=== PATIENT | female | born 1950 | race Hispanic/Latino ===

== ENCOUNTER 2017-05-06 07:31 | Day surgery (SDC) | payer MEDICARE ==
[~2017-05-06 07:31] MED LIST: ANCEF/STERILE WATER 2 GM/20 ML 2 GM/20 ML SYRINGE IV NR; NACL 0.9% 1000 ML 1,000 ML IV SCH
[2017-05-06] MEDS ORDERED: HEPARIN 10,000 UNITS/10 ML ONE ×2 (07:44→15:20)
[2017-05-06] MEDS ORDERED: MARCAINE 0.5% 30 ML INFILTRATI ONE ×2 (07:44→11:19)
[2017-05-06] MEDS ORDERED: NACL 0.9% 500 ML 500 ML ONE (07:45)
[2017-05-06] MEDS ORDERED: PAPAVERINE ONE (07:45)
[2017-05-06] MEDS ORDERED: PROTAMINE SULFATE ONE (07:45)
[2017-05-06] MEDS ORDERED: XYLOCAINE 1%/ EPI 1:100,000 INFILTRATI ONE ×4 (07:45→12:21)
[2017-05-06] MEDS ORDERED: SODIUM BICARBONATE ONE (07:46)
--- NOTE | 2017-05-06 09:05 | Anesthesia Consultation ---
Anesthesia Consult and Med Hx Date of service: 05/06/17 - Airway Anesthetic Teeth Evaluation: Edentulous (upper and lower) ROM Head & Neck: Adequate Mental/Hyoid Distance: Adequate Mallampati Class: Class II Intubation Access Assessment: Probably Good - Pulmonary Exam CTA: Yes - Cardiac Exam Cardiac Exam: RRR - Pre-Operative Health Status ASA Pre-Surgery Classification: ASA3 Proposed Anesthetic Plan: General - Pulmonary Hx Smoking: Yes (STOPPED 2011) Hx Asthma: No COPD: No Hx Sleep Apnea: No - Cardiovascular System Hx Hypertension: Yes Hx Heart Attack/AMI: No Hx Pacemaker: No Hx Internal Defibrillator: No Hx Heart Murmur: No Hx Peripheral Vascular Disease: No - Central Nervous System 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
--- NOTE | 2017-05-06 09:05 | Anesthesia Day of Surgery ---
Anesthesia Day of Surgery - Day of Surgery Patient Examined: Yes Patient H&P Reviewed: Yes Patient is NPO: Yes
[2017-05-06] MEDS ORDERED: DIPRIVAN 10 MG/ML IV ONE (09:25)
[2017-05-06] MEDS ORDERED: DILAUDID ONE (09:26)
[2017-05-06 09:34] LABS: Basophils % (Auto) 1.4 % (0.0-1.8); Eosinophils % (Auto) 3.6 % (0.0-4.3); Hematocrit 39.6 % (30.3-42.9); Hemoglobin 13.5 gm/dl (10.1-14.3); Mean Corpuscular HGB Conc 34 % (30-34); Mean Corpuscular Hemoglobin 33 pg (28-32); Mean Corpuscular Volume 96 fl (79-97); Platelet Count 325 K/mm3 (140-440); Red Blood Count 4.13 M/mm3 (3.65-5.03); Red Cell Distribution Width 15.6 % (13.2-15.2); White Blood Count 7.2 K/mm3 (4.5-11.0)
[2017-05-06 09:39] LABS: BUN/Creatinine Ratio 8.85; Chloride 92.7 mmol/L (98-107); Potassium 4.3 mmol/L (3.6-5.0)
[2017-05-06] MEDS ORDERED: PEPCID PO NR (10:00)
[2017-05-06] MEDS ORDERED: VERSED IV NR (10:00)
[2017-05-06] MEDS ORDERED: DILAUDID IV PRN (10:56)
[2017-05-06] MEDS ORDERED: THROMBIN (BOVINE) TP ONE (11:20)
[2017-05-06] MEDS ORDERED: GELFOAM TP ONE ×2 (11:20→12:22)
[2017-05-06] MEDS ORDERED: NACL 0.9% IR ONE (12:21)
[2017-05-06] MEDS ORDERED: MARCAINE 0.5% INFILTRATI ONE ×2 (12:22)
[2017-05-06] MEDS ORDERED: THROMBIN SPRAYKIT (BOVINE) TP ONE (12:22)
[2017-05-06] MEDS ORDERED: HEPARIN 10,000 UNITS/10 ML 2,000 UNIT in NACL 0.9% 500 ML 500 ML IR ONE (12:24)
[2017-05-06] MEDS ORDERED: RIFADIN ONE (12:30)
[2017-05-06] MEDS ORDERED: NEO SYNEPHRINE ONE (15:19)
[2017-05-06] MEDS ORDERED: XYLOCAINE MPF 2% ONE (15:20)
[2017-05-06] MEDS ORDERED: NACL 0.9% 100 ML ONE (15:20)
--- NOTE | 2017-05-06 15:47 | Short Stay Summary ---
Short Stay Documentation Date of service: 05/06/17 - History H&P: obtained from office - Allergies and Medications Current Medications: Allergies atorvastatin calcium [From Lipitor] Adverse Reaction (Verified 05/01/17 12:41) LETHARGY Home Medications Medication Instructions Recorded Confirmed Last Taken Type Calcitriol [Rocaltrol] 5 mcg PO DAILY 05/06/17 05/06/17 05/05/17 History Cinacalcet HCl [Sensipar] 90 mg PO DAILY 05/06/17 05/06/17 05/05/17 History Humalog Kwikpen 200 UNITS/ML 100 unit PRN 05/06/17 05/06/17 Unknown History Hydralazine HCl [Apresoline TAB] 50 mg PO BID 05/06/17 05/06/17 05/05/17 History Pravastatin Sodium [Pravastatin] 10 mg PO QDAY 05/06/17 05/06/17 05/05/17 History Sevelamer Carbonate [Renvela] 800 mg PO TID 05/06/17 05/06/17 05/05/17 History amLODIPine [Norvasc] 5 mg PO DAILY 05/06/17 05/06/17 05/05/17 History cloNIDine [Catapres] 0.2 tab PO DAILY 05/06/17 05/06/17 05/05/17 History Active Medications Hydromorphone HCl (Dilaudid) 0.25 mg IV Q10MIN PRN PRN Reason: Pain, Moderate (4-6) Stop: 05/06/17 23:59 Cefazolin Sodium (Ancef/Sterile Water 2 Gm/20 Ml) 2 gm in 20 mls @ 80 mls/hr IV PREOP NR PRN Reason: Protocol Stop: 05/06/17 23:59 Sodium Chloride (Nacl 0.9% 1000 Ml) 1,000 mls @ 42 mls/hr IV DIRECT DEAN Last Admin: 05/06/17 09:30 Dose: 42 mls/hr Midazolam HCl (Versed) 2 mg IV PREOP NR Stop: 05/06/17 23:59 Last Admin: 05/06/17 10:00 Dose: 2 mg - Brief post op/procedure progress note Date of procedure: 05/06/17 Pre-op diagnosis: ESRD, need for permanent dialysis access, poorly maturing left AV fistula Post-op diagnosis: same Procedure: 1. Left UE AV fistula revision- fistula elevation Anesthesia: GETA Surgeon: NATHANAEL BAL Estimated blood loss: 50-100ml Pathology: none Condition: stable - Disposition Condition at discharge: Good Disposition: DC-01 TO HOME OR SELFCARE Short Stay Discharge Plan Wound: open to air, keep clean and dry Additional Instructions: 1. Keep arm elevated on pillows 2. Use sponge ball to maintain range of motion 3. Call for problems Follow up with: PRIMARY CAREMD [Primary Care Provider] - 7 Days NATHANAEL BAL MD [Staff Physician] - 14 Days
[2017-05-06 16:47] VITALS: BP 157/64
--- NOTE | 2017-05-06 17:01 | Post Anesthesia Evaluation ---
- Post Anesthesia Evaluation Patient Participated: Yes Airway Patent: Yes Stable Respiratory Function: Yes Nausea/Vomiting: No Temp > 96.8F: Yes Pain Manageable: Yes Adequeate Hydration: Yes Anesthesia Complications: No
--- NOTE | 2017-05-12 11:56 | Operative Report ---
PREOPERATIVE DIAGNOSES: 1. End-stage renal disease. 2. Poorly maturing left arteriovenous fistula. POSTOPERATIVE DIAGNOSES: 1. End-stage renal disease. 2. Poorly maturing left arteriovenous fistula. PROCEDURE: AV fistula revision -- left upper extremity, fistula elevation. SURGEON: Jerson Marlow MD COMPLICATIONS: None. FINDINGS: Successful elevation of basilic vein fistula; palpable thrill postoperatively. INDICATIONS: This is a pleasant female who currently dialyzes through a PermCath. She has a fistula in place. This is a brachiobasilic fistula, we angioplastied it to try to help with maturation. She was brought to surgery for definitive management, fistula was successful. DETAILS OF PROCEDURE: Consent was obtained. The patient was taken to the operating room and placed in supine position. Appropriate levels of anesthesia were provided the patient's arm was prepped and draped in sterile fashion. We visualized the vein with ultrasound prior to the surgery. We began the procedure with a medial incision along the inner aspect of the arm this extended from the previous scar. We were able to identify the fistula itself measuring about 3.5 mm. It had a connection with the deep system. It continued on in the arm. We uncovered the vessel through an incision that extended up to the axilla. We dissected through the subcutaneous tissue being cautious to not injure the nerves in the vicinity. Its adherence to nervous structures and arterial structures was observed. Careful dissection was performed. Branches that led to the alternative venous outflow were identified, clipped and tied to maintain hemostasis prior to transection. The vessel was completely lifted out of this bed. We administered heparin and then controlled the inflow with a clamp. We transected the vessel. We then hydrodilated the vessel and then it also tolerated a 5 mm dilator; it seemed to be a suitable structure for fistula creation. Due to length concerns, we exposed the [place] brachial artery within the wound. We then used a Vivi-Wick tunneler to tunnel the vessel on the more superficial plane. We maintained proper orientation with the help of marking pen. The vein was replaced into the superficial location. We then gained control on the [place] brachial artery and performed an arteriotomy. At this point, an end-to-side anastomosis with a newly placed vein was performed. This was done circumferentially. No complications occurred after this. We used the [place] brachial artery due to stenosis within the [place] fistula. After this was done, we felt a nice thrill through the fistula. The inflow for the original fistula was ligated with silk. We then maintained hemostasis with the help of electrocautery. We used a QuikClot and this was removed from the patient's body. After use, no complications occurred. We closed the skin with 3-0 Vicryl and followed this with 4-0 Monocryl. A sterile dressing was applied. The patient was awakened from anesthesia, taken to the recovery room having suffered no complications. JOB# [id number] TRENA/SÁNCHEZ
== END 2017-05-06 17:25 | disposition home or self-care (01) ==
LOC: OR 07:31
PROVIDERS: ATTEND Surgery Vascular Surgery
DX: T82.590A Other mechanical complication of surgically created arteriovenous fistula, initial encounter (principal); E11.22 Type 2 diabetes mellitus with diabetic chronic kidney disease; I12.0 Hypertensive chronic kidney disease with stage 5 chronic kidney disease or end stage renal disease; N18.6 End stage renal disease; E21.1 Secondary hyperparathyroidism, not elsewhere classified; E78.00 Pure hypercholesterolemia, unspecified; D64.9 Anemia, unspecified; Z88.8 Allergy status to other drugs, medicaments and biological substances; Z79.899 Other long term (current) drug therapy; Z79.4 Long term (current) use of insulin; Z99.2 Dependence on renal dialysis; Z98.890 Other specified postprocedural states; Z86.73 Personal history of transient ischemic attack (TIA), and cerebral infarction without residual deficits; Z87.891 Personal history of nicotine dependence; Z84.1 Family history of disorders of kidney and ureter; Z83.3 Family history of diabetes mellitus; Z80.9 Family history of malignant neoplasm, unspecified; Z82.49 Family history of ischemic heart disease and other diseases of the circulatory system; Y83.2 Surgical operation with anastomosis, bypass or graft as the cause of abnormal reaction of the patient, or of later complication, without mention of misadventure at the time of the procedure
CPT/HCPCS: 36415; 36832; 80048; 82962; 85025; A4649; C1757; J0690; J1170; J1644; J2250; J2370; J2704; J7030; J7040; J2440; J2720; J3490